=== PATIENT | male | born 1970 | race African-American/Black ===

== ENCOUNTER 2022-09-29 15:37 | Inpatient (IN) | payer OTHER ==
[2022-09-29 16:41] VITALS: BMI 20.9
[2022-09-29] MEDS ORDERED: BISMUTH SUBSALICYLATE 524 MG/30 ML PO PRN (18:24)
[2022-09-29] MEDS ORDERED: MAG HYDROX/AL HYDROX/SIMETH 30 ML UNIT-DOSE CUP PO PRN (18:24)
[2022-09-29] MEDS ORDERED: NALOXONE HCL (KLOXXADO) 8 MG SPRAY NS PRN (18:24)
[2022-09-29] MEDS ORDERED: chlordiazePOXIDE HCL 25 MG CAPSULE PO PRN (18:24)
[2022-09-29] MEDS ORDERED: ACETAMINOPHEN 325 MG TABLET (FP) PO PRN ×2 (18:24)
[2022-09-29] MEDS ORDERED: IBUPROFEN 600 MG TABLET (FP) PO PRN (18:24)
[2022-09-29] MEDS ORDERED: LOPERAMIDE HCL 2 MG CAPSULE PO PRN (18:24)
[2022-09-29] MEDS ORDERED: ONDANSETRON *ODT* 4 MG TABLET SL PRN (18:24)
[2022-09-29] MEDS ORDERED: MAGNESIUM HYDROX 2400MG/30ML ORAL SUSPENSION 30 ML CUP PO PRN (18:24)
[2022-09-29] MEDS ORDERED: IBUPROFEN 400 MG TABLET (FP) PO PRN (18:24)
[2022-09-29] MEDS ORDERED: BENZOCAINE/MENTHOL (CHLORASEPTIC ) LOZENGE MM PRN (18:24)
[2022-09-29] MEDS ORDERED: POLYETHYLENE GLYCOL (HEALTHYLAX) 3350 17 GM PACKET PO PRN (18:24)
[2022-09-29] MEDS: chlordiazePOXIDE HCL 25 MG CAPSULE PO SCH (22:22)
[2022-09-29] MEDS: THIAMINE HCL 100 MG TABLET (FP) PO SCH (22:22)
[2022-09-29] MEDS: MELATONIN 5 MG TABLETS PO SCH (22:23)
[2022-09-30] MEDS: chlordiazePOXIDE HCL 25 MG CAPSULE PO SCH ×4 (05:57→22:56)
[2022-09-30] MEDS: TAMSULOSIN HCL 0.4 MG CAP PO SCH (09:11)
[2022-09-30] MEDS: METHOCARBAMOL 500 MG TABLET PO PRN (10:48)
[2022-09-30] MEDS: hydrOXYzine PAMOATE 25 MG CAPSULE (FP) PO PRN (10:48)
[2022-09-30] MEDS: PRENATAL VITAMINS W/ FOLIC ACID TABLET (FP) PO SCH (10:51)
[2022-09-30 11:18] LABS: HEMATOCRIT 35.9 % (35.4-49); MCHC 33.4 g/dl (32.0-35.9); MEAN PLT VOLUME 8.4 fl (7.5-11.1); PLATELET COUNT 203 10^3/uL (134-434); RBC 3.99 M/mm3 (4.00-5.60); RDW 15.6 % (11.9-15.9)
[2022-09-30 12:01] LABS: BLOOD UREA NITROGEN 9.8 mg/dL (7-18)
[2022-09-30 12:03] LABS: ALBUMIN 2.8 g/dl (3.4-5.0); CALCIUM 8.1 mg/dL (8.5-10.1)
[2022-09-30 12:04] LABS: CREATININE 0.9 mg/dL (0.55-1.3)
[2022-09-30 12:06] LABS: BILIRUBIN,TOTAL 0.5 mg/dL (0.2-1); TOT PROT 6.8 g/dl (6.4-8.2)
[2022-09-30] MEDS: DICYCLOMINE HCL 10 MG CAPSULE PO PRN (18:18)
[2022-09-30] MEDS: THIAMINE HCL 100 MG TABLET (FP) PO SCH (22:56)
[2022-09-30] MEDS: MELATONIN 5 MG TABLETS PO SCH (22:56)
[2022-10-01] MEDS: chlordiazePOXIDE HCL 25 MG CAPSULE PO SCH ×4 (05:31→22:51)
[2022-10-01] MEDS: METHOCARBAMOL 500 MG TABLET PO PRN ×2 (06:18→21:15)
[2022-10-01] MEDS: hydrOXYzine PAMOATE 25 MG CAPSULE (FP) PO PRN ×2 (06:19→10:36)
[2022-10-01] MEDS: TAMSULOSIN HCL 0.4 MG CAP PO SCH (10:06)
[2022-10-01] MEDS: PRENATAL VITAMINS W/ FOLIC ACID TABLET (FP) PO SCH (10:36)
[2022-10-01] MEDS: DICYCLOMINE HCL 10 MG CAPSULE PO PRN (21:16)
[2022-10-01] MEDS: MELATONIN 5 MG TABLETS PO SCH (22:52)
[2022-10-01] MEDS: THIAMINE HCL 100 MG TABLET (FP) PO SCH (22:52)
[2022-10-02] MEDS ORDERED: chlordiazePOXIDE HCL 10 MG CAPSULE PO PRN
[2022-10-02] MEDS: chlordiazePOXIDE HCL 10 MG CAPSULE PO SCH ×4 (06:24→23:32)
[2022-10-02] MEDS: TAMSULOSIN HCL 0.4 MG CAP PO SCH (07:36)
[2022-10-02] MEDS: PRENATAL VITAMINS W/ FOLIC ACID TABLET (FP) PO SCH (10:47)
[2022-10-02] MEDS: METHOCARBAMOL 500 MG TABLET PO PRN (10:48)
[2022-10-02] MEDS: MELATONIN 5 MG TABLETS PO SCH (23:32)
[2022-10-02] MEDS: THIAMINE HCL 100 MG TABLET (FP) PO SCH (23:32)
[2022-10-03] MEDS: METHOCARBAMOL 500 MG TABLET PO PRN (03:55)
[2022-10-03] MEDS ORDERED: chlordiazePOXIDE HCL 10 MG CAPSULE PO SCH (05:00)
[2022-10-03] MEDS: TAMSULOSIN HCL 0.4 MG CAP PO SCH (08:00)
[2022-10-03 09:25] VITALS: BP 105/51; PULSE 104; RESP 16; TEMP 97.7
[2022-10-03] MEDS: PRENATAL VITAMINS W/ FOLIC ACID TABLET (FP) PO SCH (09:38)
[2022-10-04] MEDS ORDERED: chlordiazePOXIDE HCL 10 MG CAPSULE PO ONE (05:00)
== END 2022-10-03 09:41 | disposition home or self-care (01) | DRG 774 ==
LOC: YASAS 15:37 → Y6N 20:09
PROVIDERS: ADMIT Allergy & Immunology; ATTEND Surgery
PROC: HZ2ZZZZ Detoxification Services for Substance Abuse Treatment (ICD-10-PCS; principal; 2022-09-29)
DX: F10.230 Alcohol dependence with withdrawal, uncomplicated (principal); F14.20 Cocaine dependence, uncomplicated; F19.282 Other psychoactive substance dependence with psychoactive substance-induced sleep disorder; F19.24 Other psychoactive substance dependence with psychoactive substance-induced mood disorder; Z21 Asymptomatic human immunodeficiency virus [HIV] infection status; N40.0 Benign prostatic hyperplasia without lower urinary tract symptoms; Z86.19 Personal history of other infectious and parasitic diseases; Z56.0 Unemployment, unspecified; Z59.00 Homelessness unspecified
CPT/HCPCS: 36415; 80053; 82310; 83036; 85027; 86593; 86780; 87811; C9803-CS; U0003; U0005

== ENCOUNTER 2023-05-20 10:11 | Inpatient (IN) | payer OTHER ==
[2023-05-20] MEDS ORDERED: NALOXONE HCL (KLOXXADO) 8 MG SPRAY NS PRN (16:46)
[2023-05-20] MEDS ORDERED: guaiFENesin 600 MG TABLET.ER (FP) PO PRN (16:46)
[2023-05-20] MEDS ORDERED: hydrOXYzine PAMOATE 25 MG CAPSULE (FP) PO PRN (16:46)
[2023-05-20] MEDS ORDERED: POLYETHYLENE GLYCOL (HEALTHYLAX) 3350 17 GM PACKET PO PRN (16:46)
[2023-05-20] MEDS ORDERED: BENZOCAINE/MENTHOL (CHLORASEPTIC ) LOZENGE MM PRN (16:46)
[2023-05-20] MEDS ORDERED: BENZONATATE 200 MG CAPSULE PO PRN (16:46)
[2023-05-20] MEDS ORDERED: IBUPROFEN 600 MG TABLET (FP) PO PRN (16:46)
[2023-05-20] MEDS ORDERED: P-EPHED 60MG/TRIPROLIDI 2.5MG TABLET PO PRN (16:46)
[2023-05-20] MEDS ORDERED: COLLOIDAL OATMEAL 1 BAR EACH TP PRN (16:46)
[2023-05-20] MEDS ORDERED: IBUPROFEN 400 MG TABLET (FP) PO PRN (16:46)
[2023-05-20] MEDS ORDERED: NICOTINE POLACRILEX 2 MG GUM BUC PRN (16:46)
[2023-05-20] MEDS ORDERED: NALOXONE HCL 0.4 MG/ML VIAL IM PRN (16:46)
[2023-05-20] MEDS ORDERED: MAGNESIUM HYDROX 2400MG/30ML ORAL SUSPENSION 30 ML CUP PO PRN (16:46)
[2023-05-20] MEDS ORDERED: ACETAMINOPHEN 325 MG TABLET (FP) PO PRN (16:46)
[2023-05-20] MEDS ORDERED: LOPERAMIDE HCL 2 MG CAPSULE PO PRN (16:46)
[2023-05-20] MEDS ORDERED: MAG HYDROX/AL HYDROX/SIMETH 30 ML UNIT-DOSE CUP PO PRN (16:46)
[2023-05-20 17:35] VITALS: BMI 21.5
[2023-05-20] MEDS: MELATONIN 5 MG TABLETS PO SCH (21:26)
[2023-05-20] MEDS: THIAMINE HCL 100 MG TABLET (FP) PO SCH (21:26)
[2023-05-21] MEDS ORDERED: PRENATAL VITAMINS W/ FOLIC ACID TABLET (FP) PO SCH (10:00)
[2023-05-21 10:39] LABS: HEMATOCRIT 39.4 % (35.4-49); HEMOGLOBIN 13.1 GM/dL (11.7-16.9); MCH 30.7 pg (25.7-33.7); MCHC 33.2 g/dl (32.0-35.9); MEAN CELL VOLUME 92.7 fl (80-96); MEAN PLT VOLUME 7.9 fl (7.5-11.1); PLATELET COUNT 231 10^3/uL (134-434); RBC 4.26 M/mm3 (4.00-5.60); RDW 15.5 % (11.9-15.9); WHITE BLOOD COUNT 8.7 K/mm3 (4.0-10.0)
[2023-05-21 10:43] LABS: PH,URINE 7.5 (5.0-8.0); URINE APPEARANCE CLEAR; URINE BILIRUBIN NEGATIVE (NEGATIVE); URINE COLOR YELLOW; URINE GLUCOSE (UA) NEGATIVE (NEGATIVE); URINE KETONE NEGATIVE (NEGATIVE); URINE LEUK ESTERASE NEGATIVE (NEGATIVE); URINE NITRITE NEGATIVE (NEGATIVE); URINE PROTEIN NEGATIVE (NEGATIVE)
[2023-05-21 11:02] LABS: POTASSIUM 3.9 mmol/L (3.5-5.1)
[2023-05-21 11:03] LABS: ALBUMIN 2.9 g/dl (3.4-5.0); BLOOD UREA NITROGEN 12.5 mg/dL (7-18); CALCIUM 8.3 mg/dL (8.5-10.1)
[2023-05-21 11:08] LABS: BILIRUBIN,TOTAL 0.3 mg/dL (0.2-1); TOT PROT 7.1 g/dl (6.4-8.2)
[2023-05-21 12:38] LABS: SYPHILIS W/ RPR CONF REACTIVE (NONREACTIVE)
[2023-05-21] MEDS ORDERED: TAMSULOSIN HCL 0.4 MG CAP PO SCH (15:15)
[2023-05-21 15:35] VITALS: BP 111/73; PULSE 85; RESP 16; TEMP 98.4
[2023-05-21] MEDS: THIAMINE HCL 100 MG TABLET (FP) PO SCH (23:35)
[2023-05-21] MEDS: MELATONIN 5 MG TABLETS PO SCH (23:35)
== END 2023-05-22 08:00 | disposition short-term general hospital (02) | DRG 772 ==
LOC: YASAS 10:11 → Y3W 15:41
PROVIDERS: ADMIT Surgery; ATTEND Psychiatry & Neurology Pain Medicine
PROC: HZ42ZZZ Group Counseling for Substance Abuse Treatment, Cognitive-Behavioral (ICD-10-PCS; principal; 2023-05-20)
DX: F10.20 Alcohol dependence, uncomplicated (principal); F14.20 Cocaine dependence, uncomplicated; F17.210 Nicotine dependence, cigarettes, uncomplicated; F41.9 Anxiety disorder, unspecified; F32.A Depression, unspecified; Z21 Asymptomatic human immunodeficiency virus [HIV] infection status; N49.2 Inflammatory disorders of scrotum; N40.0 Benign prostatic hyperplasia without lower urinary tract symptoms
CPT/HCPCS: 36415; 80053; 81003; 85027; 86593; 86780; 86803; 87635

== ENCOUNTER 2023-05-21 16:54 | Inpatient (IN) | payer OTHER ==
[2023-05-21 17:38] VITALS: BMI 23.4
[2023-05-21 19:08] LABS: BASO % 0.4 % (0-2.0); EOS % 5.4 % (0-4.5); HEMATOCRIT 38.1 % (35.4-49); HEMOGLOBIN 13.2 GM/dL (11.7-16.9); LYMPH % 26.3 % (8-40); MCHC 34.6 g/dl (32.0-35.9); MEAN CELL VOLUME 89.7 fl (80-96); MEAN PLT VOLUME 7.7 fl (7.5-11.1); MONO % 9.3 % (3.8-10.2); NEUT % 58.6 % (42.8-82.8); PLATELET COUNT 242 10^3/uL (134-434); RBC 4.25 M/mm3 (4.00-5.60); RDW 15.7 % (11.9-15.9)
[2023-05-21] MEDS ORDERED: VANCOMYCIN 1,000 MG in DEXTROSE 5%-WATER - 250 ML IVPB ONE (19:11)
[2023-05-21] MEDS ORDERED: PIPERACILLIN/TAZOB 2.25 GM 2.25 GM in DEXTROSE 5%-WATER - 50 ML IVPB ONE (19:11)
[2023-05-21] MEDS ORDERED: ACYCLOVIR INJECTION 400 MG in DEXTROSE 5%-WATER - 100 ML IVPB ONE (19:12)
[2023-05-21 19:37] LABS: POTASSIUM 4.3 mmol/L (3.5-5.1)
[2023-05-21 19:39] LABS: CALCIUM 8.3 mg/dL (8.5-10.1)
[2023-05-21 19:40] LABS: ALBUMIN 2.9 g/dl (3.4-5.0); BLOOD UREA NITROGEN 10.2 mg/dL (7-18)
[2023-05-21] MEDS ORDERED: PIPERACILLIN/TAZOB 2.25 GM 2.25 GM/50 ML BAG IVPB ONE (19:41)
[2023-05-21 19:42] LABS: URINE APPEARANCE CLEAR; URINE BILIRUBIN NEGATIVE (NEGATIVE); URINE COLOR YELLOW; URINE GLUCOSE (UA) NEGATIVE (NEGATIVE); URINE KETONE NEGATIVE (NEGATIVE); URINE LEUK ESTERASE NEGATIVE (NEGATIVE); URINE NITRITE NEGATIVE (NEGATIVE); URINE PROTEIN NEGATIVE (NEGATIVE); URINE UROBILINOGEN 0.2 mg/dL (0.2-1.0)
[2023-05-21 19:43] LABS: CREATININE 0.8 mg/dL (0.55-1.3)
[2023-05-21 19:45] LABS: BILIRUBIN,TOTAL 0.2 mg/dL (0.2-1); TOT PROT 7.2 g/dl (6.4-8.2)
[2023-05-21] MEDS ORDERED: VANCOMYCIN 1 GRAM (PRE-DOCKED) 1,000 MG/250 ML BAG IVPB ONE (20:44)
[2023-05-21] MEDS ORDERED: ACETAMINOPHEN 1000 MG/100 ML BAG IVPB ONE (23:59)
[2023-05-22] MEDS ORDERED: ACETAMINOPHEN INJECTION 100 ML IVPB ONE (00:12)
[2023-05-22 11:08] LABS: MCHC 32.6 g/dl (32.0-35.9); MEAN CELL VOLUME 92.2 fl (80-96); PLATELET COUNT 252 10^3/uL (134-434); RBC 4.33 M/mm3 (4.00-5.60); RDW 15.2 % (11.9-15.9); WHITE BLOOD COUNT 8.4 K/mm3 (4.0-10.0)
[2023-05-22] MEDS ORDERED: PIPERACILLIN/TAZOBACTAM 2.25 GM VIAL IVPB ONE (12:18)
[2023-05-22] MEDS: ENOXAPARIN NA (PORCINE) 40 MG/0.4 ML DISP.SYRIN SQ SCH (12:20)
[2023-05-22] MEDS: PIPERACILLIN/TAZOB 2.25 GM 2.25 GM in DEXTROSE 5%-WATER - 50 ML IVPB SCH ×3 (12:21→22:12)
[2023-05-22] MEDS: NICOTINE 14 MG/24 HOURS TOPICAL PATCH TD SCH ×2 (12:21→12:56)
[2023-05-22] MEDS: TAMSULOSIN HCL 0.4 MG CAP PO SCH (12:21)
[2023-05-22] MEDS: BICTEGRAV/EMTRICIT/TENOFOV (BIKTARVY) 50-200-25 MG TABLET PO SCH ×2 (12:48→12:54)
[2023-05-22] MEDS ORDERED: VANCOMYCIN 1,000 MG in DEXTROSE 5%-WATER - 250 ML IVPB SCH (19:30)
[2023-05-22] MEDS: VANCOMYCIN/WATER FOR INJ (PEG) 1,000 MG/200 ML BAG IVPB SCH (21:01)
[2023-05-23] MEDS: ACETAMINOPHEN 325 MG TABLET (FP) PO PRN (00:01)
[2023-05-23 01:43] LABS: URINE APPEARANCE Clear; URINE BILIRUBIN Negative (NEGATIVE); URINE COLOR Yellow; URINE GLUCOSE (UA) Negative (NEGATIVE); URINE KETONE Negative (NEGATIVE); URINE LEUK ESTERASE Negative (NEGATIVE); URINE NITRITE Negative (NEGATIVE); URINE PROTEIN Negative (NEGATIVE); URINE UROBILINOGEN 0.2 mg/dL (0.2-1.0)
[2023-05-23] MEDS: BICTEGRAV/EMTRICIT/TENOFOV (BIKTARVY) 50-200-25 MG TABLET PO SCH (08:42)
[2023-05-23] MEDS: TAMSULOSIN HCL 0.4 MG CAP PO SCH (08:42)
[2023-05-23] MEDS: VANCOMYCIN/WATER FOR INJ (PEG) 1,000 MG/200 ML BAG IVPB SCH ×2 (08:42→20:45)
[2023-05-23 09:41] LABS: POTASSIUM 4.3 mmol/L (3.5-5.1)
[2023-05-23 09:52] LABS: BLOOD UREA NITROGEN 16.2 mg/dL (7-18); CALCIUM 8.5 mg/dL (8.5-10.1); MAGNESIUM 2.2 mg/dL (1.8-2.4)
[2023-05-23 09:55] LABS: PHOSPHOROUS 3.9 mg/dL (2.5-4.9)
[2023-05-23 09:57] LABS: BILIRUBIN,TOTAL 0.9 mg/dL (0.2-1); TOT PROT 7.6 g/dl (6.4-8.2)
[2023-05-23] MEDS: NICOTINE 14 MG/24 HOURS TOPICAL PATCH TD SCH (10:14)
[2023-05-23] MEDS: ENOXAPARIN NA (PORCINE) 40 MG/0.4 ML DISP.SYRIN SQ SCH (10:14)
[2023-05-23] MEDS: valACYclovir HCL 500 MG TABLET (FP) PO SCH ×2 (12:36→22:25)
[2023-05-23] MEDS: GABAPENTIN 100 MG CAPSULE PO SCH ×2 (14:13→22:25)
[2023-05-23 19:10] LABS: OPIATES, URI NEGATIVE (NEGATIVE); URINE BARBITURATES NEGATIVE (NEGATIVE)
[2023-05-23 19:11] LABS: METHADONE, UR NEGATIVE (NEGATIVE); PHENCYCLIDINE,URINE NEGATIVE (NEGATIVE); URINE BENZODIAZEPINES NEGATIVE (NEGATIVE)
[2023-05-23 19:22] LABS: COCAINE, UR POSITIVE (NEGATIVE); URINE AMPHETAMINES NEGATIVE (NEGATIVE)
[2023-05-24] MEDS: GABAPENTIN 100 MG CAPSULE PO SCH ×3 (06:21→21:36)
[2023-05-24 09:16] LABS: BASO % 1.2 % (0-2.0); EOS % 7.7 % (0-4.5); HEMATOCRIT 41.1 % (35.4-49); HEMOGLOBIN 13.7 GM/dL (11.7-16.9); LYMPH % 28.3 % (8-40); MCH 30.5 pg (25.7-33.7); MCHC 33.2 g/dl (32.0-35.9); MEAN CELL VOLUME 91.7 fl (80-96); MEAN PLT VOLUME 7.6 fl (7.5-11.1); NEUT % 55.8 % (42.8-82.8); PLATELET COUNT 287 10^3/uL (134-434); RBC 4.48 M/mm3 (4.00-5.60); RDW 15.7 % (11.9-15.9); WHITE BLOOD COUNT 9.3 K/mm3 (4.0-10.0)
[2023-05-24] MEDS: valACYclovir HCL 500 MG TABLET (FP) PO SCH ×2 (09:46→21:36)
[2023-05-24] MEDS: ENOXAPARIN NA (PORCINE) 40 MG/0.4 ML DISP.SYRIN SQ SCH (09:46)
[2023-05-24] MEDS: TAMSULOSIN HCL 0.4 MG CAP PO SCH (09:46)
[2023-05-24] MEDS: NICOTINE 14 MG/24 HOURS TOPICAL PATCH TD SCH ×2 (09:46→09:59)
[2023-05-24] MEDS: VANCOMYCIN/WATER FOR INJ (PEG) 1,000 MG/200 ML BAG IVPB SCH ×2 (09:50→20:36)
[2023-05-24 09:51] LABS: POTASSIUM 4.1 mmol/L (3.5-5.1)
[2023-05-24 09:56] LABS: BLOOD UREA NITROGEN 17.5 mg/dL (7-18); CALCIUM 8.6 mg/dL (8.5-10.1)
[2023-05-24 09:57] LABS: ALBUMIN 3.1 g/dl (3.4-5.0); MAGNESIUM 2.2 mg/dL (1.8-2.4)
[2023-05-24] MEDS: BICTEGRAV/EMTRICIT/TENOFOV (BIKTARVY) 50-200-25 MG TABLET PO SCH (09:59)
[2023-05-24 10:01] LABS: BILIRUBIN,TOTAL 0.3 mg/dL (0.2-1); TOT PROT 7.9 g/dl (6.4-8.2)
[2023-05-25] MEDS: GABAPENTIN 100 MG CAPSULE PO SCH ×3 (06:50→21:30)
[2023-05-25 09:21] LABS: BASO % 0.8 % (0-2.0); EOS % 7.3 % (0-4.5); HEMATOCRIT 40.6 % (35.4-49); HEMOGLOBIN 13.9 GM/dL (11.7-16.9); MCH 31.5 pg (25.7-33.7); MCHC 34.2 g/dl (32.0-35.9); MEAN CELL VOLUME 92.1 fl (80-96); MEAN PLT VOLUME 7.9 fl (7.5-11.1); MONO % 7.6 % (3.8-10.2); NEUT % 49.3 % (42.8-82.8); PLATELET COUNT 288 10^3/uL (134-434); RBC 4.41 M/mm3 (4.00-5.60); RDW 15.5 % (11.9-15.9); WHITE BLOOD COUNT 7.4 K/mm3 (4.0-10.0)
[2023-05-25 10:01] LABS: ALBUMIN 3.2 g/dl (3.4-5.0)
[2023-05-25 10:04] LABS: BLOOD UREA NITROGEN 12.7 mg/dL (7-18); CREATININE 0.9 mg/dL (0.55-1.3); MAGNESIUM 2.3 mg/dL (1.8-2.4)
[2023-05-25 10:06] LABS: BILIRUBIN,TOTAL 0.3 mg/dL (0.2-1); TOT PROT 8.3 g/dl (6.4-8.2)
[2023-05-25 10:08] VITALS: RESP 18
[2023-05-25] MEDS: ENOXAPARIN NA (PORCINE) 40 MG/0.4 ML DISP.SYRIN SQ SCH (10:09)
[2023-05-25] MEDS: TAMSULOSIN HCL 0.4 MG CAP PO SCH (10:09)
[2023-05-25] MEDS: valACYclovir HCL 500 MG TABLET (FP) PO SCH ×2 (10:09→21:30)
[2023-05-25] MEDS: NICOTINE 14 MG/24 HOURS TOPICAL PATCH TD SCH (10:10)
[2023-05-25] MEDS: VANCOMYCIN/WATER FOR INJ (PEG) 1,000 MG/200 ML BAG IVPB SCH ×2 (10:10→20:37)
[2023-05-25] MEDS: BICTEGRAV/EMTRICIT/TENOFOV (BIKTARVY) 50-200-25 MG TABLET PO SCH (10:13)
[2023-05-25] MEDS: ACETAMINOPHEN 325 MG TABLET (FP) PO PRN (14:16)
[2023-05-26] MEDS: GABAPENTIN 100 MG CAPSULE PO SCH ×2 (05:23→13:04)
[2023-05-26 06:28] VITALS: TEMP 98.4
[2023-05-26] MEDS: TAMSULOSIN HCL 0.4 MG CAP PO SCH (07:41)
[2023-05-26] MEDS: BICTEGRAV/EMTRICIT/TENOFOV (BIKTARVY) 50-200-25 MG TABLET PO SCH (07:41)
[2023-05-26] MEDS: VANCOMYCIN/WATER FOR INJ (PEG) 1,000 MG/200 ML BAG IVPB SCH (07:41)
[2023-05-26] MEDS: valACYclovir HCL 500 MG TABLET (FP) PO SCH (09:45)
[2023-05-26] MEDS: ENOXAPARIN NA (PORCINE) 40 MG/0.4 ML DISP.SYRIN SQ SCH (09:45)
[2023-05-26] MEDS: NICOTINE 14 MG/24 HOURS TOPICAL PATCH TD SCH (09:46)
[2023-05-26 10:17] LABS: BASO % 1.5 % (0-2.0); EOS % 6.5 % (0-4.5); HEMATOCRIT 39.9 % (35.4-49); HEMOGLOBIN 13.1 GM/dL (11.7-16.9); LYMPH % 35.5 % (8-40); MCH 30.1 pg (25.7-33.7); MCHC 32.8 g/dl (32.0-35.9); MEAN PLT VOLUME 7.8 fl (7.5-11.1); MONO % 6.2 % (3.8-10.2); NEUT % 50.3 % (42.8-82.8); PLATELET COUNT 282 10^3/uL (134-434); RBC 4.33 M/mm3 (4.00-5.60); RDW 15.5 % (11.9-15.9); WHITE BLOOD COUNT 6.9 K/mm3 (4.0-10.0)
[2023-05-26 10:42] LABS: POTASSIUM 4.3 mmol/L (3.5-5.1)
[2023-05-26 10:49] LABS: ALBUMIN 3.2 g/dl (3.4-5.0); CALCIUM 8.8 mg/dL (8.5-10.1)
[2023-05-26 10:50] LABS: BLOOD UREA NITROGEN 13.6 mg/dL (7-18)
[2023-05-26 10:53] LABS: BILIRUBIN,TOTAL 0.4 mg/dL (0.2-1); TOT PROT 7.8 g/dl (6.4-8.2)
[2023-05-26] MEDS ORDERED: PENICILLIN G BENZATHINE 2,400,000 UNIT/4 ML PFS IM ONE (15:30)
[2023-05-26 15:43] VITALS: BP 112/69; PULSE 88
[2023-05-28 01:06] LABS: CHLAMYDIA PSITTACI IG-A AB <1:16 (.); CHLM TRACH DK-A <1:16 (.); CHLM TRACH DK-G <1:64 (.); CHLM TRACH DK-M <1:10 (.); CHLM TRACH L1-A <1:16 (.); CHLM TRACH L1G <1:64 (.)
== END 2023-05-26 17:56 | disposition other institution (70) | DRG 501 ==
LOC: JER 16:54 → JERBED 05-22 02:02 → J8W 05-22 07:12
PROVIDERS: ADMIT Internal Medicine; ATTEND Nurse Practitioner Family
DX: N50.9 Disorder of male genital organs, unspecified (principal); B20 Human immunodeficiency virus [HIV] disease; N40.0 Benign prostatic hyperplasia without lower urinary tract symptoms; F14.10 Cocaine abuse, uncomplicated; F19.20 Other psychoactive substance dependence, uncomplicated; F17.200 Nicotine dependence, unspecified, uncomplicated; A53.0 Latent syphilis, unspecified as early or late; L73.9 Follicular disorder, unspecified; F10.20 Alcohol dependence, uncomplicated
CPT/HCPCS: 36415; 76870-TC; 80053; 80307; 81003; 83735; 84100; 85025; 85027; 86140; 86359; 86360; 86593; 86631; 86632; 86780; 87040; 87255; 87491; 87591; 93005; 93010; 99285-25